=== PATIENT | male | born 1950 | race Caucasian/White ===

== ENCOUNTER → 2016-11-28 | Outpatient (CLI) | payer OTHER ==
--- NOTE | 2016-11-28 16:12 | CPEEG ---
[f rep st] ELECTROENCEPHALOGRAM DATE OF STUDY: 11/28/2016 INTERPRETATION: Normal EEG during wakefulness and sleep. There are no potentially epileptogenic abnormalities present during recording. REPORT: This EEG contains 9-10 Hz alpha to the posterior head regions. There was no abnormal activation at rest, during photic stimulation or hyperventilation. The patient became drowsy and fell into sustained sleep during the recording. There was no abnormal activation during drowsiness, sleep , or during times of arousal. Copy requested to: Dr. Neema Pitts [facility] /[id number]/MODL MTDD
== END ==
LOC: FCPNEURO 14:25
PROVIDERS: ATTEND Psychiatry & Neurology Neurology
DX: H53.9 Unspecified visual disturbance (principal); R29.818 Other symptoms and signs involving the nervous system

== ENCOUNTER → 2019-01-08 | Outpatient (CLI) | payer OTHER | LOC: BMCIMAGING 09:25 | PROVIDERS: ATTEND Internal Medicine | DX: R07.81 Pleurodynia (principal) ==